=== PATIENT | female | born 1995 | race Hispanic/Latino ===

== ENCOUNTER 2023-01-30 14:51 | Outpatient (CLI) | payer BC | END 2023-01-30 14:52 | disposition home or self-care (01) | LOC: BICULT 14:51 | PROVIDERS: ATTEND Obstetrics & Gynecology | DX: O92.29 Other disorders of breast associated with pregnancy and the puerperium (principal); N63.10 Unspecified lump in the right breast, unspecified quadrant ==

== ENCOUNTER 2024-09-17 08:35 | Day surgery (SDC) | payer BC ==
[2024-09-17] MEDS ORDERED: Acetaminophen 500 MG TAB ONE (09:04)
[2024-09-17] MEDS: Acetaminophen 500 MG TAB PO SCH (09:08)
[2024-09-17] MEDS: Iron Sucrose Complex 500 MG in Sodium Chloride 0.9% 250 ML 250 ML IVPB SCH (09:33)
[2024-09-17 13:32] VITALS: BP 117/58; TEMP 98.6
== END 2024-09-17 14:00 | disposition home or self-care (01) ==
LOC: ONC/OP 08:35
PROVIDERS: ATTEND Obstetrics & Gynecology
DX: O99.019 Anemia complicating pregnancy, unspecified trimester (principal); Z3A.00 Weeks of gestation of pregnancy not specified
CPT/HCPCS: 96365; 96366; J1756; J7050